=== PATIENT | female | born 1955 | race Caucasian/White ===

== ENCOUNTER 2020-10-12 07:53 | Observation (INO) | payer BC ==
[~2020-10-12] VITALS: Ht 170.2 cm; Wt 72.6 kg
[2020-10-12 08:45] LABS: HEMOGLOBIN 14.2 gm/dl (12.3-15.3); RED BLOOD COUNT 4.48 M/UL (4.00-5.10); WHITE BLOOD COUNT 8.8 K/UL (4.5-11.0)
[2020-10-12 09:05] LABS: BUN/CREATININE RATIO 21 (0-10)
[2020-10-13 03:46] LABS: HEMOGLOBIN 12.8 gm/dl (12.3-15.3); RED BLOOD COUNT 4.14 M/UL (4.00-5.10); WHITE BLOOD COUNT 7.4 K/UL (4.5-11.0)
[2020-10-13 04:07] LABS: BUN/CREATININE RATIO 21 (0-10)
[2020-10-13] MEDS ORDERED: ASPIRIN EC81 MG PO (10:38)
[2020-10-13] MEDS ORDERED: EC-NAPROSYN500 MG PO (10:38)
== END 2020-10-13 14:35 | disposition home or self-care (01) ==
LOC: ER1 07:53 → MED SURG 4 11:43 → CDU 11:43 → MED SURG 4 17:13
PROVIDERS: Emergency Medicine; Physician Assistant; ADMIT Family Medicine
DX: R07.81 Pleurodynia (principal); L40.50 Arthropathic psoriasis, unspecified; E78.5 Hyperlipidemia, unspecified; R79.89 Other specified abnormal findings of blood chemistry; Z88.2 Allergy status to sulfonamides; Z88.5 Allergy status to narcotic agent; Z79.899 Other long term (current) drug therapy; Z79.1 Long term (current) use of non-steroidal anti-inflammatories (NSAID); Z79.82 Long term (current) use of aspirin; Z20.822 Contact with and (suspected) exposure to COVID-19; Z86.79 Personal history of other diseases of the circulatory system
CPT/HCPCS: ECHO; 0240U; 36415; 71045; 80048; 80053; 82550; 82553; 82962; 83874; 84484; 85025; 85379; 93005; 93306; 96365; 96374; 96376; 99285; G0378; J1885; Q9967

== ENCOUNTER → 2020-10-15 | Outpatient (CLI) | payer BC ==
[~2020-10-15] MED LIST: ASPIRIN EC81 MG PO; EC-NAPROSYN500 MG PO
== END ==
LOC: HEART 5 09:21
DX: R07.81 Pleurodynia (principal); L40.50 Arthropathic psoriasis, unspecified; R79.89 Other specified abnormal findings of blood chemistry

== ENCOUNTER → 2020-10-31 | Outpatient (CLI) | payer BC | LOC: HEART 5 09:08 | DX: R06.02 Shortness of breath (principal); R05 Cough; R94.2 Abnormal results of pulmonary function studies | CPT/HCPCS: 94010; 94729 ==